=== PATIENT | male | born 1950 | race Caucasian/White ===

== ENCOUNTER 2019-02-05 10:47 | Emergency (ER) | payer MEDICARE, OTHER ==
[2019-02-05 11:18] VITALS: BP 117/72
[2019-02-05] MEDS ORDERED: Tetan/Diph/Pertus SYR(Tdap)* 0.5 ML SYR(BOOSTRIX) use SYR contains LATEX IM ONE (11:35)
--- NOTE | 2019-02-05 12:04 | UC ---
Laceration HPI - HPI Summary HPI Summary: 68-year-old male presents with left hand laceration. Patient states he was doing yardwork when he struck his hand on a piece of wood. Patient irrigated the wound at home, but his wanted him to get an updated tetanus shot and wound check. Patient denies pain at the site. - History Of Current Complaint Chief Complaint: UCLaceration Stated Complaint: FINGER LACERATION Time Seen by Provider: 02/05/19 11:34 Pain Intensity: 1 - Allergies/Home Medications Allergies/Adverse Reactions: Allergies Allergy/AdvReac Type Severity Reaction Status Date / Time No Known Allergies Allergy Verified 02/05/19 11:18 Home Medications: Home Medications Tamsulosin CAP* [Flomax CAP*] 1 tab PO DAILY 02/05/19 [History Confirmed ] PMH/Surg Hx/FS Hx/Imm Hx Previously Healthy: Yes - Surgical History Surgical History: Yes Surgery Procedure, Year, and Place: Cholecystectomy apprx age 51. - Family History Known Family History: Positive: Non-Contributory - Social History Occupation: Retired Alcohol Use: Occasionally Substance Use Type: None Smoking Status (MU): Never Smoked Tobacco Review of Systems All Other Systems Reviewed And Are Negative: Yes Skin: Positive: Other - laceration Physical Exam - Summary Physical Exam Summary: General: Well appearing, no distress Cardiovascular: Skin is well perfused Pulmonary: No respiratory distress, no tachypnea Abdomen: Non-distended Skin: 1 cm laceration to the web between the second and third fingers of the left hand. MSK: SILT L hand, full ROM fingers, strength 5/5 Psych: Normal affect Neuro: A&Ox3 Vital Signs: Initial Vital Signs Temp 36.4 C 02/05/19 11:15 Pulse 46 02/05/19 11:15 Resp 16 02/05/19 11:15 BP 117/72 02/05/19 11:15 Pulse Ox 100 02/05/19 11:15 Laceration Repair - Laceration Repair 1 Description: Linear Contamination/FB Removal: none Irrigation With Pressure Irrigation Device: Yes Closure Material: Sutures - 4-0 prolene Closure Method: Single Layer Suture Type: Prolene Laceration Course/Dx - Course/Dx Course Of Treatment: 68-year-old male with laceration in the web between the second and third digits of the left hand Wound irrigated, patient does not suspect foreign body and would like to wait on x-ray at this time. Patient aware that if there is a small piece of wood would not be able to see and this may cause irritation. Updated tetanus - Diagnosis Provider Diagnosis: Finger laceration Discharge - Sign-Out/Discharge Documenting (check all that apply): Patient Departure All imaging exams completed and their final reports reviewed: No Studies - Discharge Plan Condition: Stable Disposition: HOME Patient Education Materials: Care For Your Stitches (DC) Referrals: Arnoldo Cortes MD [Primary Care Provider] - Additional Instructions: You received sutures (stitches) today. These need to be removed in 7-10 days. Please keep the area dry and clean. Return to the emergency department or seek medical attention for drainage, redness to the area, increased pain around the laceration. Once the wound is healed, you can apply sunscreen to help with scar prevention. - Billing Disposition and Condition Condition: STABLE Disposition: Home
== END 2019-02-05 12:19 | disposition home or self-care (01) ==
LOC: UCEAST 10:47
DX: S61.412A Laceration without foreign body of left hand, initial encounter (principal); W26.8XXA Contact with other sharp object(s), not elsewhere classified, initial encounter; Y93.H2 Activity, gardening and landscaping; Y92.017 Garden or yard in single-family (private) house as the place of occurrence of the external cause; Y99.8 Other external cause status
CPT/HCPCS: 12001; 90471; 90715; 99211; G0463